=== PATIENT | male | born 1965 | race Caucasian/White ===

== ENCOUNTER → 2019-09-17 15:05 | Outpatient (CLI) | payer MEDICARE, OTHER ==
[2019-07-31 12:27] VITALS: BMI 35.1
[~2019-09-17 15:05] MED LIST: BREO ELLIPTA 21 EACH; DOXYCYCLINE HY100 M2 PO; EMBEDA ER 50-21 EACH PO; IPRAT-ALBUT 0.5-3 ML UPD; LYRICA200 MG PO; NEXIUM40 MG PO; NORVASC10 MG PO; OMNICEF300 MG PO; PREDNISONE20 MG PO; TRAZODONE HCL150 MG PO; VASOTEC10 MG PO; XANAX0.5 MG PO; ZANAFLEX4 MG PO
== END | disposition home or self-care (01) ==
LOC: D.RT 15:00
PROVIDERS: ATTEND Internal Medicine Pulmonary Disease
DX: J44.1 Chronic obstructive pulmonary disease with (acute) exacerbation (principal)